=== PATIENT | female | born 1985 | race Asian ===

== ENCOUNTER 2021-05-31 20:04 | Emergency (ER) | payer OTHER ==
[~2021-05-31] VITALS: Ht 162.6 cm; Wt 74.8 kg
[2021-05-31 20:23] VITALS: BP_SYST 152
[2021-05-31 21:21] VITALS: BP_SYST 145
== END 2021-05-31 21:21 | disposition home or self-care (01) ==
LOC: SED 20:04
DX: H10.9 Unspecified conjunctivitis (principal)
CPT/HCPCS: 99281